=== PATIENT | male | born 1955 | race Caucasian/White ===

== ENCOUNTER 2018-07-02 01:26 | Inpatient (IN) | payer MEDICAID ==
[~2018-07-02] VITALS: Ht 175.3 cm; Wt 101.6 kg
[2018-07-02 03:45] LABS: BASOPHILS % 0.9 % (0.0-2.0); EOSINOPHILS % 3.8 % (0.0-5.0); HEMATOCRIT. 39.1 % (42.0-52.0); HEMOGLOBIN. 13.5 g/dL (14.0-18.0); LYMPHOCYTES % 45.1 % (20.0-50.0); MEAN CORPUSCULAR HEMOGLOBIN 33.6 pg (28.0-32.0); MEAN CORPUSCULAR VOLUME 97.5 fL (80.0-94.0); MEAN PLATELET VOLUME 8.4 fl (7.4-10.4); MONOCYTES % 8.6 % (2.0-8.0); NEUTROPHILS % 41.6 % (40.0-76.0); PLATELET 154 x1000/uL (130-400); RED BLOOD CELL COUNT 4.01 mill/uL (4.7-6.1); RED CELL DISTRIBUTION WIDTH 12.4 % (11.6-14.6)
[2018-07-02] MEDS ORDERED: NITROGLYCERIN OINT 1GM/INCH UDPKT TD ONE (03:45)
[2018-07-02] MEDS ORDERED: ASPIRIN 81MG TABLET PO ONE (03:45)
[2018-07-02 03:52] LABS: CHLORIDE 107 mEq/L (98-107)
[2018-07-02 08:45] VITALS: BP 101/61
[2018-07-02] MEDS ORDERED: DEXTROSE 50% WATER 50ML SYRINGE IV PRN (08:45)
[2018-07-02] MEDS ORDERED: ENOXAPARIN 30MG/0.3ML SYR SUBCUT SCH (09:00)
[2018-07-02] MEDS ORDERED: HYDROCODONE/ACETAMINOPHEN 10/325MG TABLET PO PRN (09:15)
[2018-07-02] MEDS: ASPIRIN 81MG TABLET PO SCH (10:11)
[2018-07-02] MEDS ORDERED: METF-416 PO (12:08)
[2018-07-02] MEDS ORDERED: SIMV20TA6 PO (12:08)
[2018-07-02] MEDS ORDERED: ASPI-1159 PO (12:08)
[2018-07-02] MEDS: INSULIN LISPRO 100 UNITS/ML SUBCUT SCH ×3 (12:40→21:00)
[2018-07-02 13:00] VITALS: BP 96/50
[2018-07-02] MEDS: BLOOD SUGAR DIAGNOSTIC STRIP TEST SCH ×3 (13:13→21:00)
[2018-07-02 15:02] LABS: CLARITY URINE CLEAR (CLEAR); COLOR URINE YELLOW (YELLOW); KETONES URINE TRACE (NEGATIVE); LEUKOCYTE ESTERASE URINE NEGATIVE (NEGATIVE); NITRITE URINE NEGATIVE (NEGATIVE); OCCULT BLOOD URINE NEGATIVE (NEGATIVE); PH URINE 5.5 (4.5-8.0); PROTEIN URINE NEGATIVE (NEGATIVE); SPECIFIC GRAVITY URINE 1.019 (1.005-1.030)
[2018-07-02 15:47] LABS: *AMPHETAMINES SCREEN URINE NEGATIVE (NEGATIVE); *BARBITURATES SCREEN URINE NEGATIVE (NEGATIVE); CANNABINOID URINE SCREEN NEGATIVE (NEGATIVE); OPIATES URINE SCREEN NEGATIVE (NEGATIVE); PHENCYCLIDINE URINE SCREEN NEGATIVE (NEGATIVE)
[2018-07-02 15:48] LABS: *BENZODIAZEPINES SCREEN URINE NEGATIVE (NEGATIVE); *COCAINE SCREEN URINE NEGATIVE (NEGATIVE); METHADONE URINE SCREEN NEGATIVE (NEGATIVE)
[2018-07-02 16:38] VITALS: BP 101/64
[2018-07-02 20:00] VITALS: BP 99/57
[2018-07-03] VITALS (8 sets, daily range): BP systolic 90–135; BP diastolic 43–77
[2018-07-03 06:25] LABS: BASOPHILS % 0.5 % (0.0-2.0); EOSINOPHILS % 2.8 % (0.0-5.0); HEMATOCRIT. 38.2 % (42.0-52.0); HEMOGLOBIN. 13.4 g/dL (14.0-18.0); LYMPHOCYTES % 38.2 % (20.0-50.0); MEAN CORPUSCULAR HEMOGLOBIN 34.3 pg (28.0-32.0); MEAN CORPUSCULAR VOLUME 97.5 fL (80.0-94.0); MEAN PLATELET VOLUME 9.4 fl (7.4-10.4); MONOCYTES % 8.7 % (2.0-8.0); NEUTROPHILS % 49.8 % (40.0-76.0); PLATELET 155 x1000/uL (130-400); RED BLOOD CELL COUNT 3.92 mill/uL (4.7-6.1); RED CELL DISTRIBUTION WIDTH 12.3 % (11.6-14.6)
[2018-07-03 06:41] LABS: CHLORIDE 108 mEq/L (98-107)
[2018-07-03] MEDS: INSULIN LISPRO 100 UNITS/ML SUBCUT SCH ×4 (07:40→21:16)
[2018-07-03] MEDS: BLOOD SUGAR DIAGNOSTIC STRIP TEST SCH ×4 (07:54→21:09)
[2018-07-03] MEDS: ASPIRIN 81MG TABLET PO SCH (09:00)
[2018-07-03] MEDS: SODIUM CHLORIDE 0.45% 1,000 ML IV SCH ×2 (10:44→21:06)
[2018-07-03] MEDS ORDERED: PNEUMOCOCCAL 23-VAL P-SAC VAC 0.5 ML IM ONE (12:00)
[2018-07-03] MEDS ORDERED: HEPARIN SODIUM 1,000 UNIT/1ML VIAL IV ONE (12:00)
[2018-07-03] MEDS ORDERED: NITROGLYCERIN 50MCG/ML 10ML VIAL (CATH LAB) IV ONE (12:00)
[2018-07-03] MEDS ORDERED: NICARDIPINE 100MCG/ML 10ML VIAL (CATH LAB) IV ONE (12:00)
[2018-07-03] MEDS ORDERED: IODIXANOL 320MG/ML 100 ML BOTTLE IV ONE (14:32)
[2018-07-03] MEDS ORDERED: LIDOCAINE HCL 1% 20ML VIAL (Pyxis) INJ ONE (14:32)
[2018-07-03] MEDS ORDERED: FENTANYL CITRATE/PF 50MCG/ML 2ML VIAL ONE (15:00)
[2018-07-03] MEDS ORDERED: MIDAZOLAM HCL 2 MG/2 ML VIAL ONE (15:00)
[2018-07-03] MEDS ORDERED: ACETAMINOPHEN 325MG TABLET PO PRN (15:45)
[2018-07-03] MEDS ORDERED: ONDANSETRON HCL 4MG/2ML INJ IV PRN (15:45)
[2018-07-03] MEDS ORDERED: ATROPINE SULFATE 1MG/10ML SYR IV PRN (15:45)
[2018-07-04] VITALS (7 sets, daily range): BP systolic 98–143; BP diastolic 60–82
[2018-07-04] MEDS: BLOOD SUGAR DIAGNOSTIC STRIP TEST SCH (06:08)
[2018-07-04] MEDS: SODIUM CHLORIDE 0.45% 1,000 ML IV SCH (06:12)
[2018-07-04 06:39] LABS: BASOPHILS % 0.4 % (0.0-2.0); EOSINOPHILS % 3.2 % (0.0-5.0); HEMOGLOBIN. 14.7 g/dL (14.0-18.0); LYMPHOCYTES % 34.8 % (20.0-50.0); MEAN CORPUSCULAR HEMOGLOBIN 33.2 pg (28.0-32.0); MEAN CORPUSCULAR VOLUME 97.1 fL (80.0-94.0); MEAN PLATELET VOLUME 8.8 fl (7.4-10.4); MONOCYTES % 8.7 % (2.0-8.0); NEUTROPHILS % 52.9 % (40.0-76.0); PLATELET 157 x1000/uL (130-400); RED BLOOD CELL COUNT 4.43 mill/uL (4.7-6.1); RED CELL DISTRIBUTION WIDTH 12.3 % (11.6-14.6)
[2018-07-04 06:44] LABS: CHLORIDE 111 mEq/L (98-107)
[2018-07-04] MEDS: INSULIN LISPRO 100 UNITS/ML SUBCUT SCH (07:10)
[2018-07-04] MEDS: ASPIRIN 81MG TABLET PO SCH (08:13)
== END 2018-07-04 11:48 | disposition home or self-care (01) | DRG 192 ==
LOC: ER 01:26 → 8WST 04:54 → EDBEDREQTM 04:59 → EDBEDREQ 04:59 → ENRESERV 07:21 → 3WST 07-03 15:45
PROVIDERS: ADMIT Internal Medicine; ATTEND Internal Medicine
PROC: 4A023N7 Measurement of Cardiac Sampling and Pressure, Left Heart, Percutaneous Approach (ICD-10-PCS; principal; 2018-07-03)
PROC: B211YZZ Fluoroscopy of Multiple Coronary Arteries using Other Contrast (ICD-10-PCS; 2018-07-03)
PROC: B215YZZ Fluoroscopy of Left Heart using Other Contrast (ICD-10-PCS; 2018-07-03)
DX: M94.0 Chondrocostal junction syndrome [Tietze] (principal); I24.9 Acute ischemic heart disease, unspecified; D64.9 Anemia, unspecified; E11.9 Type 2 diabetes mellitus without complications; E66.9 Obesity, unspecified; E87.6 Hypokalemia; I10 Essential (primary) hypertension; N40.0 Benign prostatic hyperplasia without lower urinary tract symptoms; Z68.33 Body mass index [BMI] 33.0-33.9, adult; Z79.4 Long term (current) use of insulin; Z90.49 Acquired absence of other specified parts of digestive tract; Z71.3 Dietary counseling and surveillance
CPT/HCPCS: 36415; 71045; 80048; 80061; 80305; 82962; 83880; 84443; 84484; 90732; 93005; 93306; 93458; 99285; C1769; C1887; J1644; J1650; J1815; J2250; J3010; J3490; Q9967

== ENCOUNTER 2024-12-07 14:01 | Emergency (ER) | payer MEDICARE, MEDICAID ==
[~2024-12-07] VITALS: Ht 172.7 cm; Wt 80.0 kg
[~2024-12-07 14:01] MED LIST: ASPI-1497 PO; CELE-116 MT; GABA-529 PO; METF-416 PO; SIMV-43 PO
[2024-12-07 14:12] VITALS: BP 117/72; TEMP 37.2; O2SAT 100
[2024-12-07 14:18] VITALS: PULSE 99; RESP 16; O2SAT 98
[2024-12-07] MEDS ORDERED: DEXT15DR5 EACHEYE (15:13)
[2024-12-07] MEDS ORDERED: GUAI-450 MT (15:15)
== END 2024-12-07 15:23 | disposition home or self-care (01) ==
LOC: ER 14:14
DX: H11.31 Conjunctival hemorrhage, right eye (principal); J06.9 Acute upper respiratory infection, unspecified; B97.89 Other viral agents as the cause of diseases classified elsewhere; E11.9 Type 2 diabetes mellitus without complications; N40.0 Benign prostatic hyperplasia without lower urinary tract symptoms; Z79.1 Long term (current) use of non-steroidal anti-inflammatories (NSAID); Z79.899 Other long term (current) drug therapy; Z88.5 Allergy status to narcotic agent
CPT/HCPCS: 99282